=== PATIENT | female | born 1980 | race Caucasian/White ===

== ENCOUNTER → 2017-03-05 | Outpatient (CLI) | payer OTHER ==
[~2017-03-05] MED LIST: ASPI81TA21 PO; PEDICHW44 PO; SENN-63 PO
--- NOTE | 2017-03-05 15:31 | DIAGNOSTIC IMAGING REPORT ---
LEFT GROIN ULTRASOUND CLINICAL HISTORY: Melanoma. Enlarging left groin lymph nodes. COMPARISON STUDY: No previous studies for comparison. FINDINGS: There are several prominent left inguinal lymph nodes. The largest node measures 1.9 x 0.5 x 0.3 cm. This node is elongated. This node also contains a fatty hilum. There is a round 0.7 x 0.4 x 0.5 cm left inguinal lymph node. In addition, there is a 1.5 x 1.1 x 0.6 cm left inguinal lymph node which likely contains a fatty hilum. IMPRESSION: Several prominent left inguinal lymph nodes. These lymph nodes are not overtly suspicious but given the clinical history, ultrasound guided fine needle aspiration of the 0.7 x 0.4 x 0.5 cm left inguinal lymph node is recommended given that this reflects the palpable lymph node and round morphology. Electronically signed by: Jaciel Lopez M.D. 03/05/2017 3:30 PM Dictated Date/Time: 03/05/2017 3:10 PM
== END | disposition home or self-care (01) ==
LOC: C.ULTRBC 14:30 → MERGE 14:30
PROVIDERS: ATTEND Dermatology
DX: R59.9 Enlarged lymph nodes, unspecified (principal)

== ENCOUNTER → 2017-03-23 | Outpatient (CLI) | payer OTHER ==
--- NOTE | 2017-03-23 14:13 | DIAGNOSTIC IMAGING REPORT ---
GUIDANCE NEEDLE PLACEMENT CLINICAL HISTORY: LEFT GROIN SWOLLEN LYMPH NODE TECHNIQUE: Also noted fine-needle aspiration COMPARISON STUDY: 03/05/2017 FINDINGS: Following informed consent, ultrasound guidance was performed to attempt fine-needle aspiration of the previously described left inguinal node. Despite multiple passes, the mobility of the node made fine-needle aspiration in possible. The node has diminished in maximum dimension to 6 mm. As result, the study is considered nondiagnostic. Due to the slight decrease in maximum dimension of the node, is recommended that repeat ultrasound be performed in 3 months. If the node has increased in size, a repeat attempt would be indicated. IMPRESSION: 1. Due to the reasons discussed above, fine-needle aspiration of the targeted lymph node was unsuccessful. 2. Due to its persistence small size, and slight decrease in volume from the prior study, it is recommended that a repeat study be performed in 3 months as follow-up. If it has increased in volume, a repeated fine-needle aspiration should be attempted at that time. 3. Situation was discussed with the patient who concurs. The above report was generated using voice recognition software. It may contain grammatical, syntax or spelling errors. Electronically signed by: Mark Dillard M.D. 03/23/2017 2:12 PM Dictated Date/Time: 03/23/2017 2:08 PM
== END | disposition home or self-care (01) ==
LOC: C.ULTR 12:34 → MERGE 13:00
PROVIDERS: ATTEND Dermatology
DX: R59.9 Enlarged lymph nodes, unspecified (principal)

== ENCOUNTER → 2017-10-19 | Outpatient (CLI) | payer OTHER | END | disposition home or self-care (01) | LOC: C.RDSM 18:11 | PROVIDERS: ATTEND Family Medicine | DX: M25.461 Effusion, right knee (principal) ==

== ENCOUNTER → 2017-10-27 | Outpatient (CLI) | payer OTHER ==
--- NOTE | 2017-10-27 16:36 | DIAGNOSTIC IMAGING REPORT ---
R LOWER EXT JOINT WITHOUT CLINICAL HISTORY: 37 years-old Female presenting with RIGHT KNEE PAIN, locking and swelling, mostly the lateral knee pain, no history of injury, loose bodies on radiograph. TECHNIQUE: Multisequence, multiplanar MR imaging of the right knee was performed without the use of intravenous contrast. IV contrast: None. COMPARISON: Plain radiographs from 10/19/2017. FINDINGS: Localizer images: Unremarkable. Focal mild bony edema surrounds a concavity in the medial aspect of the medial femoral condyle this extends from the anterior mid weightbearing surface to the posterior mid weightbearing surface overt 2.5 cm in AP dimension. The defect measures 10 mm in width. These findings are consistent with stage V osteochondral lesion. A more fists tissue in the defect, likely scar. A loose body may be present in the posterior (series 6 image 9) and posterior lateral joint space (series 11 image 21). Less severe osteochondral defect noted in the mid aspect of the medial femoral condyle (series 11 image 15), which demonstrates intact overlying cartilage. Fissuring of the posterior weightbearing surfaces of the femoral condyles suggested bilaterally. At least 50% cartilage thinning in the lateral patellar facet. Medial meniscus intact. Lateral meniscus intact. Anterior and posterior cruciate ligaments intact. Medial collateral ligament intact. Lateral collateral ligament complex including the biceps femoris tendon, fibular collateral ligament, popliteus tendon, and iliotibial band intact. Quadriceps and patellar tendons intact. The patellar retinacula intact. Muscular edema of the origins of the medial and lateral gastrocnemius. Mild interfascial edema. Moderate knee joint effusion. Trace popliteal cyst. IMPRESSION: 1. Stage V osteochondral lesion at the medial aspect of the medial femoral condyle. Less severe smaller adjacent osteochondral lesion. 2. At least 50% articular cartilage thinning of the lateral patellar facet. 3. Muscular edema at the origins of the medial lateral gastrocnemius suggest strain. Electronically signed by: Kalyan Cm M.D. 10/27/2017 4:34 PM Dictated Date/Time: 10/27/2017 4:24 PM
== END | disposition home or self-care (01) ==
LOC: C.MRIBC 15:42
PROVIDERS: ATTEND Family Medicine
DX: M25.461 Effusion, right knee (principal); M23.41 Loose body in knee, right knee; M23.8X1 Other internal derangements of right knee

== ENCOUNTER → 2017-11-11 | Outpatient (CLI) | payer OTHER | END | disposition home or self-care (01) | LOC: C.RDSM 17:47 | PROVIDERS: ATTEND Orthopaedic Surgery Sports Medicine | DX: M25.461 Effusion, right knee (principal); M23.41 Loose body in knee, right knee ==

== ENCOUNTER → 2017-11-19 | Outpatient (CLI) | payer OTHER ==
--- NOTE | 2017-11-20 07:22 | MAMMOGRAPHY REPORT ---
BILATERAL DIGITAL DIAGNOSTIC MAMMOGRAM TOMOSYNTHESIS WITH CAD AND TARGETED LEFT ULTRASOUND: 11/19/2017 CLINICAL HISTORY: The patient reports a palpable left breast lump for approximately 2 weeks, which sh e feels is smaller in size than when she first felt it. TECHNIQUE: Breast tomosynthesis in addition to standard 2D mammography was performed. Current study was also evaluated with a Computer Aided Detection (CAD) system. Bilateral CC and MLO 2D and tomosyn thesis images were obtained. COMPARISON: No prior exams were available for comparison. BREAST COMPOSITION: The tissue of both breasts is heterogeneously dense, which may obscure small mas ses. FINDINGS: A triangle marker buchanan the site of the palpable lump in the left 6:00 breast. There are n o suspicious masses, calcifications, or areas of architectural distortion noted in either breast mamm ographically. Targeted ultrasound was performed of the area of the palpable lump pointed out by the patient, in the left breast at approximately 4:00, 3 cm from the nipple. Sonographically normal tissue is seen in t his region, without evidence of a mass or other suspicious sonographic abnormality. IMPRESSION: ACR BI-RADS CATEGORY 2: BENIGN, TARGETED ULTRASOUND ACR BI-RADS CATEGORY 2: BENIGN No suspicious mammographic or sonographic abnormality at the site of the palpable left breast lump po inted out by the patient. There is no mammographic or targeted sonographic evidence of malignancy. Recommend clinical follow-up for the palpable left breast lump, and recommend routine bilateral scree xavi mammograms in one year. The patient has been verbally notified of the results. Approximately 10% of breast cancers are not detected with mammography. A negative mammographic report should not delay biopsy if a clinically suggestive mass is present. Luly Owen M.D. /:11/19/2017 11:57:19 Svp Of Digital: Sonja COX)(Thom), [facility] letter sent: Normal 1/2 BI-RADS Code: ACR BI-RADS Category 2: Benign Ultrasound BI-RADS: ACR BI-RADS Category 2: Benign
== END | disposition home or self-care (01) ==
LOC: C.MAMM 11:33
PROVIDERS: ATTEND Nurse Practitioner Family
DX: N63.20 Unspecified lump in the left breast, unspecified quadrant (principal)